=== PATIENT | male | born 1940 | race Caucasian/White ===

== ENCOUNTER 2016-02-22 18:51 | Observation (INO) | payer MEDICARE, OTHER ==
[~2016-02-22] VITALS: Ht 182.9 cm; Wt 93.2 kg
[2016-02-22 19:03] VITALS: BP 147/85; PULSE 84; RESP 22; O2SAT 97
[2016-02-22 19:36] VITALS: BP 148/61; PULSE 78; RESP 19; O2SAT 98
--- NOTE | 2016-02-22 19:50 | ED.REPORT ---
HPI-Chest Pain 40 and Over Date of Service Feb 22, 2016 ED Provider: Dr. Davian Tony D.O. A 75 year old male with a history of Meckel's diverticulitis and double hernia presents to the ED from Urgent Care with chest heaviness onset yesterday. The pain lasted approximately 90 minutes. The patient also reports fatigue, irregular pulse, and elevated blood pressure. He took takes 191mg ASA daily and took 325mg yesterday. Nursing Notes Stated Complaint: IRREGULAR HEART BEAT Chief Complaint: Dysrhythmia/Cardiac Nursing Notes Reviewed: Yes Allergies: Coded Allergies: No Known Allergies (Unverified , 02/22/16) Scheduled Aspirin Chew (Aspirin Chew) 81 Mg Chew 81 MG PO DAILY Atorvastatin (Lipitor) 20 Mg Tablet 20 MG PO DAILY Cholecalciferol (Vitamin D3) (Vitamin D3) 1,000 Unit Tab.chew 1,000 UNIT PO DAILY Cyanocobalamin (Vitamin B-12) (Vitamin B12) 5,000 Mcg Tab.rapdis Unknown Dose PO DAILY Vit A/C/E AC/Znox/Cupric Oxide (Eye Vitamin-Minerals Tablet) 7,160-113 Tablet 1 EACH PO DAILY Scheduled PRN Nitroglycerin SL (Nitrostat) 0.4 Mg Tab.subl 0.4 MG SL Q5MIN PRN PRN For Chest Pain General Time Seen by MD: 19:50 Chief Complaint Chest pressure Hx Obtained From: Patient Arrived By: Walk-in Sudden in Onset?: Yes Onset Occurred: Yesterday Symptom Duration: Since onset Location: : Chest left: Chest right Quality: Heaviness Severity: Current: Moderate Severity: Maximum: Moderate Associated with: Denies: Fever Pertinent Negative: Relieved by nothing Recent Healthcare: No recent doctor visit Similar Sx Previous: No Past Medical History Past Medical History Notes: Past Medical History Double hernia age 13 Meckel's diverticulitis age 48 - 10 inch removed Past Surgical History Esophagogastroduodenoscopy with biopsies Colonoscopy Family History Colon cancer Smoking History Unknown if Ever Smoker Social History Alcohol Use: "Social" Other Social History: Ambulatory Status Independent Review of Systems Review of Systems Note: + Elevated blood pressure Constitutional: Reports: Fatigue, Denies: Fever Respiratory: Denies: Non-productive cough Cardiovascular: Reports: Chest pain (Heaviness), Palpitations GI: Denies: Vomiting Neurologic: Denies: Bladder dysfunction, Bowel dysfunction Complete sys rev & neg: except as marked. Physical Exam Initial Vital Signs Vital Signs (First) Date Time Temp Pulse Resp B/P Pulse Ox O2 Delivery O2 Flow Rate FiO2 02/22/16 19:03 36.8 84 22 147/85 97 Room Air Initial VS: Reviewed Head / Eyes: Atraumatic, Normocephalic ENT: Conjunctiva normal, No scleral icterus Neck: Supple, Full range of motion Skin: Warm, Dry, No cyanosis Neurologic: Alert, Oriented, Nonfocal Psychiatric: Mood/affect normal, Behavior normal, Normal thought content General/Constitutional: Awake, Alert, No acute distress Respiratory / Chest: Breath sounds NL, Breath sounds = bilat, No respiratory distress Cardiovascular: Heart rate NL, Regular rhythm, Heart sounds NL Abdomen: Soft, Non-tender Interpretation & Diagnostics Lab Results Interpretation Result Diagram: 02/23/1614602/23/16 0147 Test 02/22/16 19:44 Hemoglobin A1c 5.9% (4.8-5.6) Magnesium Level 2.3mg/dL (1.6-2.6) Total Bilirubin 0.2mg/dL (0.0-1.2) Aspartate Amino Transf (AST/SGOT) 18U/L (0-50) Alanine Aminotransferase (ALT/SGPT) 13U/L (0-44) Alkaline Phosphatase 55U/L (25-160) Pro-B-Type Natriuretic Peptide 474.4pg/mL (0-486) Total Protein 7.0g/dL (6.4-8.4) Albumin 3.6g/dL (3.4-5.0) Thyroid Stimulating Hormone (TSH) 1.920uIU/mL (0.450-4.500) ECG Interpretation ECG Interpretation: Sinus rhythm rate 72 Probable left atrial enlargement Repol abnormal, probable ischemia, anterolateral leads Flipped T-wave in leads V1-V6 ST depression in lead V4 Time: 19:18 Interpreted by: ED physician Re-Eval/Medical Decision Med Decision/Clinical Course 90 minutes of potentially anginal chest pain with abnormal EKG. First troponin negative. We will admit to the hospital for stress testing and rule out HI protocol. Source of Hx: Old records Time of Eval: 20:12 Patient Status: Condition improved Re-Evaluation/Progress Note: Discussed with patient lab and ECG results, diagnosis, and plan for admit. Patient agrees with plan for care and all questions were addressed. Consultation : Referral / Consult Name: Elvira Doss MD Consulted With: Hospitalist Call Returned at: 20:30 Crop Setting Out Machine Operator: Agrees with eval, Agrees with plan, Accepts admit Counseled Regarding: Diagnosis, Lab results, Need for admission Discharge & Departure Primary Impression: Chest pain Chest pain type: precordial chest pain Qualified Code: R07.2 - Precordial pain Additional Impression: Abnormal ECG Disposition: ADMITTED TO HOSPITAL Discharge Condition All VS Reviewed: Yes Condition: Stable Referrals: Liam Leon MD (PCP) Scribe Attestation Portions of this note were transcribed by Bertha Haro. Dr. Chavo Arias, personally performed the history, physical exam, and medical decision-making; I reviewed and confirmed the accuracy of the information in the transcribed note. Signed by: Diana Vera, 02/22/2016, 20:55 copies to: Liam Leon MD, Todd P DO Feb 22, 2016 19:50 BERTHA HARO Feb 22, 2016 20:23 3.6g/dL (3.4-5.0) ECG Interpretation ECG Interpretation: Sinus rhythm rate 72 Probable left atrial enlargement Repol abnormal, probable ischemia, anterolateral leads Flipped T-wave in leads V1-V6 ST depression in lead V4 Time: 19:18 Interpreted by: ED physician Re-Eval/Medical Decision Source of Hx: Old records Time of Eval: 20:12 Patient Status: Condition improved Re-Evaluation/Progress Note: Discussed with patient lab and ECG results, diagnosis, and plan for admit. Patient agrees with plan for care and all questions were addressed. Consultation : Referral / Consult Name: Elvira Doss MD Consulted With: Hospitalist Call Returned at: 20:30 Crop Setting Out Machine Operator: Agrees with eval, Agrees with plan, Accepts admit Counseled Regarding: Diagnosis, Lab results, Need for admission Discharge & Departure Primary Impression: Chest pain Chest pain type: precordial chest pain Qualified Code: R07.2 - Precordial pain Additional Impression: Abnormal ECG Disposition: ADMITTED TO HOSPITAL Discharge Condition All VS Reviewed: Yes Condition: Stable Referrals: Liam Leon MD (PCP) Scribe Attestation Portions of this note were transcribed by Bertha Haro. Dr. Barrera Ariasia, personally performed the history, physical exam, and medical decision-making; I reviewed and confirmed the accuracy of the information in the transcribed note. Signed by: Diana Vera, 02/22/2016, 20:55 copies to: Liam Leon MD, Todd P DO Feb 22, 2016 19:50 BERTHA HARO Feb 22, 2016 20:23
[2016-02-22 19:52] LABS: BASOPHILS % (AUTO) 0.4 % (0-3); EOSINOPHILS % (AUTO) 4.3 % (0-5); MONOCYTES % (AUTO) 15.4 % (4-12); Mean Corpuscular Hemoglobin 31.2 pg (27.0-35.0); Mean Corpuscular Volume 91.5 fL (81-100); NEUTROPHILS % (AUTO) 61.8 % (40-74); Platelet Count 254 bil/L (150-400)
[2016-02-22] MEDS ORDERED: Nitroglycerin 2% 1 Gm Ointment TOPICAL ONE (20:20)
[2016-02-22 20:25] LABS: TROPONIN T < 0.010 ug/L (0.0-0.011)
[2016-02-22 20:33] LABS: Magnesium 2.3 mg/dL (1.6-2.6)
[2016-02-22] MEDS: 0.9% Sodium Chloride 1,000 ML IV SCH (21:21)
[2016-02-22] MEDS ORDERED: Senna-Docusate 8.6-50 mg Tablet PO PRN (21:25)
[2016-02-22] MEDS ORDERED: Atropine 1 mg/10 mL (Code) Syringe IVPUSH PRN (21:25)
[2016-02-22] MEDS ORDERED: Alum-Mag Hydrox-Simeth 30 mL Suspension PO PRN (21:25)
[2016-02-22] MEDS ORDERED: Ondansetron 2 mg/mL 2 mL Inj IVPUSH PRN (21:25)
[2016-02-22] MEDS ORDERED: Polyethylene Glycol (PEG) 17 Gm Powder PO PRN (21:25)
--- NOTE | 2016-02-22 22:12 | PCM.HPMED ---
Subjective Date of Service Feb 22, 2016 Primary Provider: Admitting Physician: Primary Care Physician: Liam Leon MD Attending Physician: Chief Complaint: Chest pressure, htn, and irregular pulse History of Present Illness: 75 year old male, [employer], with hx of smoking and hyperlipidemia presents to the ED due to hypertension and irregular heart beat with substernal chest pressure radiating to the left arm without diaphoresis, dizziness, lightheadedness, or nausea. Pt states that the chest pressure occurred yeesterday afternoon and lasted for 1.5 hours and remitted. During this pressure he states that his SBP>160 and HR > 120. He continued to monitor his BP every 3 hours and when it elevated again today and his pulse became irregular he decided to come to the ED. He has only had pressure like this once before when he underwent extensive, 2 day dental surgery in [place] and developed atrial fibrillation from what he was told was to much novocaine. Pt states that the episode in [place] was much worse than the episode yesterday. He denies current symptoms in ED. He denies recent illness, no sick contacts, no diarrhea/constipation/fever/chills, etc. Last cardiac perfusion scan was in 2004. From [facility], pt had diagnosis of abnormal EKG in 2010 along with A-fib In the ED EKG revealed a Wellen's pattern with inverted T waves in all precordial leads and lead 1; Discussion with patient reveals that he has had this in the past. He was given aspirin 325 and lovenox. CBC/CMP benign. Trop negative Review of Systems: A comprehensive review of systems was conducted with the patient and found to be negative except as above in the History of Present Illness. Allergies Coded Allergies: No Known Allergies (Unverified , 02/22/16) Home Medications From [facility] Aspirin 81mg daily Atorvastatin 20mg daily Eylea 2mg/0.05ml Ocuvite Tablet PMH Hyperlipidemia Hx of chest pain hx of atrial fibrillation Diverticulitis Surgical History Hernia repair Family History Father, mother, sister all have cardiac disease Father of Colon cancer Mother of stomach cancer? Social History Hx Alcohol Use: Yes (occasionally) Hx Substance Use: No Hx Tobacco Use: No Smoking Status: Unknown if Ever Smoker (41 ppd) Living Arrangement: with Family Exam Vital Signs Vital Sign - Last Date Time Temp Pulse Resp B/P Pulse Ox O2 Delivery O2 Flow Rate FiO2 1/10/17 19:36 36.6 78 19 148/61 98 02/22/16 19:03 Room Air Exam Gen: NAD, conversing well HEENT: no jvd; supple neck Cardiac: RRR no m/r/g; mild-mod decreased sound Resp: CTA bilaterally with decreased breath sounds but no m/r/g Abd: non-tender, non-distended, +bs Ext: no edema; pulses intact and regular without nouding Neuro: sensation intact throughout; strength 5/5; CN2-12 Psych: normal mood and affect Lab and Diagnostics Result Diagram: 02/22/16194302/22/161943 Assessment & Plan 75 year old male with chest pressure yesterday and reported hypertension and irregular heart beat with hx of atrial fibrillation and Wellen's pattern on EKG presented to the ED for evaluation. Chest pressure likely from recurrent atrial fibrillation; resolved on admission ; ongoing - Pressure, HTN, and reported irregular heart rate - EKG demonstrates T-wave inversions through precordials and lead 1 - Troponin negative x 2 - Lab findings benign - Lovenox and aspirin started in ED - NM study tomorrow - ECHO in AM - Trend out trop and CKMB - Pt to remain on tele Chronic Hyperlipidemia; present on admission; ongoing - Last outpatient labs in january with LDL 112 - Continue Atorvastatin 20mg daily Dispo: Pt is being admitted to observation with anticipated LOS < 2 midnights for rule out of ACS Pain Evaluation: Adequate Pain Control Resuscitation Status: CPR: Attempt Resuscitation Attending Statement Pt seen and examined by myself and agree with above plan. Deshawn Lee DO Feb 22, 2016 22:12 Elvira Doss MD Feb 23, 2016 06:20
[2016-02-22 22:17] LABS: Creatine Kinase 60 U/L (21-232)
[2016-02-22 22:20] VITALS: BP 154/59; PULSE 82; RESP 22; O2SAT 96
[2016-02-23] MEDS: Sodium Chloride LOK Flush 10 mL Syringe IVFLUSH SCH ×3 (00:30→15:51)
[2016-02-23] MEDS: Heparin 5,000 Unit/mL Inj SUBQ SCH ×3 (00:30→15:51)
[2016-02-23 02:12] LABS: BASOPHILS % (AUTO) 0.3 % (0-3); EOSINOPHILS % (AUTO) 4.9 % (0-5); MONOCYTES % (AUTO) 14.6 % (4-12); Mean Corpuscular Hemoglobin 30.7 pg (27.0-35.0); Mean Corpuscular Volume 90.9 fL (81-100); NEUTROPHILS % (AUTO) 57.9 % (40-74); Platelet Count 227 bil/L (150-400)
[2016-02-23 02:47] LABS: Creatine Kinase 52 U/L (21-232)
[2016-02-23 04:42] VITALS: BP 102/36; PULSE 72; RESP 19; O2SAT 94
--- NOTE | 2016-02-23 07:29 | NUR ---
Admit note Pt admitted to ER # 15 an inpatient status. Admission assessment and screening completed. VSS. POC reviewed and discussed with pt and he verbalizes understating. Pt is appropriate and cooperative with care. Pt denies CP or discomfort. supervisor functional testing shows SR with frequent PACs. No overt complications noted.
[2016-02-23 09:06] VITALS: BP 123/55; PULSE 70; RESP 14; O2SAT 99
--- NOTE | 2016-02-23 10:20 | DRSVH ---
[facility] [address] [place] [address] Echocardiogram Report Name: SAMIR JOHNSON DStudy Date: 02/23/2016 Height: 72 in Hospital Exam Location: [facility] Weight: 206 lb Gender: Male BSA: 2.2 m2 : 1940 Age: 75 yrs BP: 102/36 mmHg Reason For Study: CHEST PAIN Ordering Physician: Performed By: Omar Stein Interpretation Summary The left ventricle is normal in size. The ejection fraction is estimated to be 65-70%. The right ventricle is normal in size and function. There is mild to moderate mitral regurgitation. Procedure: A two-dimensional transthoracic echocardiogram with color flow and Doppler was performed. The study quality was technically good. There is no prior echocardiogram noted for this patient. The patient was in normal sinus rhythm during the exam. The patient had occasional PACs during the exam. Left Ventricle: The left ventricle is normal in size. Left ventricular wall thickness is mildly increased. Apical hypertrophy is present. A false chord is noted (normal variant). The ejection fraction is estimated to be 65-70%. There are no focal wall motion abnormalities. Spectral Doppler of the mitral valve is reversed, with an E/A wave ratio < 1.0. Right Ventricle: The right ventricle is normal in size and function. Atria: Both atria are normal in size. The interatrial septum is intact with no evidence for an atrial septal defect. Mitral Valve: The mitral valve leaflets are slightly calcified. There is mild to moderate mitral regurgitation. Aortic Valve: The aortic valve is trileaflet. The aortic valve opens well. There is no aortic valve stenosis. No aortic regurgitation is present. Tricuspid Valve: The tricuspid valve is normal in structure and function. There is trace tricuspid regurgitation. Pulmonary artery pressures cannot be estimated because of the lack of a measurable TR jet velocity. Pulmonic Valve: The pulmonic valve is not well seen, but is grossly normal. There is trace pulmonic regurgitation. Great Vessels: The aortic root is normal size. The dimensions of the ascending aorta are normal. The aortic arch is at the upper limits of normal in size. The pulmonary artery is normal size. The IVC is of normal diameter and collapses greater than 50% with a sniff. This suggests a low right atrial pressure of 3 mm Hg. Pericardium/ Pleura There is no pericardial effusion. There is no pleural effusion. MMode/2D Measurements & Calculations LVIDd: 4.6 cm LA dimension: 4.0 cm RA long axis Ao root diam: 3.1 cm LVIDs: 2.4 cm Aortic Jxn: 2.9 cm FS: 47.5 % LA A2 area: 20.8 cm RA area asc Aorta Diam EPSS: 0.70 cm LA A4 area: 24.8 cm IVSd: 1.1 cm LA length (vol) : 14.0 cm Ao Arch Diam LVPWd: 1.1 cm RA vol (Proximal trans.) LA vol: 71.9 ml : 36.2 ml LA vol index RA : 16.8 mm2 IVC diam: 1.6 cm LV rebolledo. diameter/BSALV sys. diameter/BSA RVD1 (basal) RVD2 (mid): 2.7 cm (cm/m^2): 2.2 (cm/m^2): 1.1 Doppler Measurements & Calculations Ao V2 max MV E max newton MV E/A: 0.85 PA V2 max: 77.4 cm/sec : 102.5 cm/sec : 57.0 cm/sec Med Peak E' Newton PA mean P.4 mmHg Ao max PG MV A max newton PA Accel Time: 0.12 sec : 4.2 mmHg : 67.1 cm/sec E/E' med: 10.1 Ao mean PG Pulm A Revs Dur : 3.0 mmHg MV A dur: 0.13 sec MV dec time Ao V2 mean PA V2 mean Pulm A Revs Dur - MV A : 0.25 sec : 83.7 cm/sec : 57.7 cm/sec Dur: -0.02 msec Ao V2 VTI PA pr(Accel) : 22.3 cm : 25.8 mmHg Reading Physician:JOVANI
[2016-02-23 11:28] VITALS: PULSE 81
[2016-02-23] MEDS: 0.9% Sodium Chloride 1,000 ML IV SCH (12:48)
[2016-02-23] MEDS ORDERED: CYAN50008 PO (13:08)
[2016-02-23] MEDS ORDERED: ASPI81TA3 PO (13:08)
[2016-02-23] MEDS ORDERED: CHOL10008 PO (13:08)
[2016-02-23] MEDS ORDERED: VIT-10 PO (13:08)
[2016-02-23] MEDS ORDERED: ATOR20TA PO (13:08)
[2016-02-23 13:22] VITALS: BP 136/75; PULSE 72; RESP 18; O2SAT 97
--- NOTE | 2016-02-23 13:36 | NUR ---
7 Beat run of VT At 1300hrs patient had a 7 beat run of VT, asymptomatic. Patient denies CP/SOB, N/V, dizziness/lightheaded. Dr Cook paged notifying him of VT run.
[2016-02-23 14:34] VITALS: PULSE 84; O2SAT 98
[2016-02-23 15:13] LABS: APPEARANCE,URINE CLEAR (CLEAR,HAZY); COLOR,URINE STRAW (YELLOW); OCCULT BLOOD,URINE NEGATIVE (NEGATIVE); UROBILINOGEN,URINE NORMAL (NORMAL)
--- NOTE | 2016-02-23 15:49 | NUR ---
Social Work: Initial Assessment Data: Pt is a 75 y/o male admitted for chest pain abnormal EKG. Pt's PCP is Dr Leon, pt's insurance is [employer]. Readmit score is 0. EMR reviewed. CEMENT CAR DUMPER met with pt at bedside, role explained. Pt states he lives with his spouse in a single story home where he uses no DME. Pt states he does not have a DPOA but gave CEMENT CAR DUMPER a card stating his wishes to no ever receive a blood transfusion and CEMENT CAR DUMPER made a copy for the chart. Pt states he spoke with his doctor about this. Pt states that he has no history of HH or SNF, no LTC or VA benefits, and is not a caregiver. No d/c planning needs anticipated. CEMENT CAR DUMPER will continue to follow if needs arise. Assessment: Pt who is independent at baseline. Plan: Pt will d/c home via POV when medically stable. No d/c planning needs anticipated. CEMENT CAR DUMPER will continue to follow if needs arise. PANTERA Melendez Addendum: 02/23/16 at 1551 by MAURICIO BECK Amended: Links added.
--- NOTE | 2016-02-23 16:55 | DRSVH ---
PROCEDURE: EITHER REST OR STRESS ONLY Exercise myocardial perfusion SPECT with gated imaging and ejection fraction RADIOPHARMACEUTICAL: 22.1 mCi Tc-99m tetrafosmin IV at peak exercise. INDICATIONS: chest pain TECHNIQUE: Radiopharmaceutical was injected at peak stress test. SPECT images were obtained, with p erfusion images in short axis, horizontal long axis, and vertical long axis views. Gated images were reviewed using Z[employer] software. COMPARISON: None. CARDIAC STRESS: A standard Flo treadmill exercise tolerance test was performed by the patient under the supervision of an attending staff. The patient exercised for 5 minutes and 24 seconds; functional aerobic impai rment (NILO) is -7%. Hemodynamic data: There is normal blood pressure and heart response to exercise. Patient achieved 8 9% of maximum predicted heart rate. Symptoms: Patient denied anginal chest pain during exercise. EKG: Diffuse appearance of mild ST depression was present during stress.. FINDINGS: Raw data: There is good labeling of myocardium by radiotracer. No significant motion artifacts. Left ventricular function: Gated images demonstrate normal left ventricle wall thickening. No segme ntal wall motion abnormalities. Left ventricle end diastolic volume is 62 mL. Left ventricle stress ejection fraction is 71%; normal values are above 45%. Myocardial perfusion: There is normal distribution of activity in the left and right ventricular anay cardium, without focal perfusion defects. IMPRESSION: 1. No stress perfusion defects identified concerning persisting. 2. Ejection fraction 71%. 3. NILO -7%. PQRS ATTESTATIONS: Measure 322 - Is this imaging test primarily performed on a low-risk surgery patient for preoperative evaluation within 30 days preceding their low-risk non-cardiac surgery? Low-risk surgery is defined as cardiac or myocardial infarction less than 1%, including (but not limited to) endoscopic pr ocedures, superficial procedures, cataract surgery, and excisional breast surgery: Answer: No Measure 323 - Is this imaging test performed primarily for the monitoring of an asymptomatic patient who had percutaneous coronary intervention on the visit date or within 2 years of the visit date? An swer: No Measure 324 - Is this imaging test performed primarily for the initial detection and risk assessment on an asymptomatic, low coronary heart disease patient? Low CHD risk definition = clinicians should consider the maximum number of available patient factors used to estimate risk based on [place] (A TP III criteria), typically age, gender, diabetes, smoking status, and use of blood pressure medicati on, and integrate age appropriate estimates for missing elements, such as LDL or standard blood press ure. Answer: No Dictated by: Luz De La Torre M.D. on 02/23/2016 at 16:53 Approved by: Luz De La Torre M.D. on 02/23/2016 at 16:53
--- NOTE | 2016-02-23 17:40 | PCM.DIMED ---
Discharge Instructions Date of Service Feb 23, 2016 Dates of Hospitalization Feb 23, 2016 at 00:56 Discharge Diagnosis Discharge Diagnosis Chest Pressure Diet Heart Healthy Activity Limited until seen by PCP (Increase gradually as tolerated) Call your provider Fever or Chills, Shortness of breath, Bleeding, Chest pain, Vomitting, Excessive diarrhea, Weakness (unilateral), Other Patient Instructions Follow-up Provider: Liam Leon MD Follow-up with PCP in: 1 week Augusto Cook MD Feb 23, 2016 17:40
[2016-02-23] MEDS ORDERED: NITR0.4T SL (17:42)
[2016-02-23 17:45] VITALS: BP 149/97; PULSE 78; RESP 20; O2SAT 96
--- NOTE | 2016-02-23 18:13 | NUR ---
Discharge patient discharged at 1805hrs today. discharge instructions reviewed with patient and spouse. medication, diagnosis and follow-up recommendations reviewed. patient verbalized understanding and agreed with plan of care.
--- NOTE | 2016-02-24 00:29 | PCM.DC.MED ---
Discharge Summary Date of Service Feb 23, 2016 Dates of Hospitalization Date of Hospital Admission Feb 23, 2016 at 00:56 Date of Discharge: Feb 23, 2016 Providers: Admitting Physician: Elvira Doss MD Primary Care Physician: Liam Leon MD Attending Physician: Elvira Doss MD Diagnosis at Time of Discharge Diagnosis at Time of Discharge Chest Pressure Procedures Cardiac Echo Impression Echocardiogram Report Name: SAMIR JOHNSON DStudy Date: 02/23/2016 Height: 72 in Hospital Exam Location: [facility] Weight: 206 lb Gender: Male BSA: 2.2 m2 : 1940 Age: 75 yrs BP: 102/36 mmHg Reason For Study: CHEST PAIN Ordering Physician: Performed By: Omar Stein Interpretation Summary The left ventricle is normal in size. The ejection fraction is estimated to be 65-70%. The right ventricle is normal in size and function. There is mild to moderate mitral regurgitation. Procedure: A two-dimensional transthoracic echocardiogram with color flow and Doppler was performed. The study quality was technically good. There is no prior echocardiogram noted for this patient. The patient was in normal sinus rhythm during the exam. The patient had occasional PACs during the exam. Left Ventricle: The left ventricle is normal in size. Left ventricular wall thickness is mildly increased. Apical hypertrophy is present. A false chord is noted (normal variant). The ejection fraction is estimated to be 65-70%. There are no focal wall motion abnormalities. Spectral Doppler of the mitral valve is reversed, with an E/A wave ratio < 1.0. Right Ventricle: The right ventricle is normal in size and function. Atria: Both atria are normal in size. The interatrial septum is intact with no evidence for an atrial septal defect. Mitral Valve: The mitral valve leaflets are slightly calcified. There is mild to moderate mitral regurgitation. Aortic Valve: The aortic valve is trileaflet. The aortic valve opens well. There is no aortic valve stenosis. No aortic regurgitation is present. Tricuspid Valve: The tricuspid valve is normal in structure and function. There is trace tricuspid regurgitation. Pulmonary artery pressures cannot be estimated because of the lack of a measurable TR jet velocity. Pulmonic Valve: The pulmonic valve is not well seen, but is grossly normal. There is trace pulmonic regurgitation. Great Vessels: The aortic root is normal size. The dimensions of the ascending aorta are normal. The aortic arch is at the upper limits of normal in size. The pulmonary artery is normal size. The IVC is of normal diameter and collapses greater than 50% with a sniff. This suggests a low right atrial pressure of 3 mm Hg. Pericardium/ Pleura There is no pericardial effusion. There is no pleural effusion. MMode/2D Measurements & Calculations LVIDd: 4.6 cm LA dimension: 4.0 cm RA long axis Ao root diam: 3.1 cm LVIDs: 2.4 cm Aortic Jxn: 2.9 cm FS: 47.5 % LA A2 area: 20.8 cm RA area asc Aorta Diam EPSS: 0.70 cm LA A4 area: 24.8 cm IVSd: 1.1 cm LA length (vol) : 14.0 cm Ao Arch Diam LVPWd: 1.1 cm RA vol (Proximal trans.) LA vol: 71.9 ml : 36.2 ml LA vol index RA : 16.8 mm2 IVC diam: 1.6 cm LV rebolledo. diameter/BSALV sys. diameter/BSA RVD1 (basal) RVD2 (mid): 2.7 cm (cm/m^2): 2.2 (cm/m^2): 1.1 Doppler Measurements & Calculations Ao V2 max MV E max newton MV E/A: 0.85 PA V2 max: 77.4 cm/sec : 102.5 cm/sec : 57.0 cm/sec Med Peak E' Newton PA mean P.4 mmHg Ao max PG MV A max newton PA Accel Time: 0.12 sec : 4.2 mmHg : 67.1 cm/sec E/E' med: 10.1 Ao mean PG Pulm A Revs Dur : 3.0 mmHg MV A dur: 0.13 sec MV dec time Ao V2 mean PA V2 mean Pulm A Revs Dur - MV A : 0.25 sec : 83.7 cm/sec : 57.7 cm/sec Dur: -0.02 msec Ao V2 VTI PA pr(Accel) : 22.3 cm : 25.8 mmHg Reading Physician:JOVANI Other Diagnostics PROCEDURE: EITHER REST OR STRESS ONLY Exercise myocardial perfusion SPECT with gated imaging and ejection fraction RADIOPHARMACEUTICAL: 22.1 mCi Tc-99m tetrafosmin IV at peak exercise. INDICATIONS: chest pain TECHNIQUE: Radiopharmaceutical was injected at peak stress test. SPECT images were obtained, with perfusion images in short axis, horizontal long axis, and vertical long axis views. Gated images were reviewed using AutoQUANT software. COMPARISON: None. CARDIAC STRESS: A standard Flo treadmill exercise tolerance test was performed by the patient under the supervision of an attending staff. The patient exercised for 5 minutes and 24 seconds; functional aerobic impairment (NILO) is -7%. Hemodynamic data: There is normal blood pressure and heart response to exercise. Patient achieved 89% of maximum predicted heart rate. Symptoms: Patient denied anginal chest pain during exercise. EKG: Diffuse appearance of mild ST depression was present during stress.. FINDINGS: Raw data: There is good labeling of myocardium by radiotracer. No significant motion artifacts. Left ventricular function: Gated images demonstrate normal left ventricle wall thickening. No segmental wall motion abnormalities. Left ventricle end diastolic volume is 62 mL. Left ventricle stress ejection fraction is 71%; normal values are above 45%. Myocardial perfusion: There is normal distribution of activity in the left and right ventricular myocardium, without focal perfusion defects. IMPRESSION: 1. No stress perfusion defects identified concerning persisting. 2. Ejection fraction 71%. 3. NILO -7%. PQRS ATTESTATIONS: Measure 322 - Is this imaging test primarily performed on a low-risk surgery patient for preoperative evaluation within 30 days preceding their low-risk non- cardiac surgery? Low-risk surgery is defined as cardiac or myocardial infarction less than 1%, including (but not limited to) endoscopic procedures, superficial procedures, cataract surgery, and excisional breast surgery: Answer : No Measure 323 - Is this imaging test performed primarily for the monitoring of an asymptomatic patient who had percutaneous coronary intervention on the visit date or within 2 years of the visit date? Answer: No Measure 324 - Is this imaging test performed primarily for the initial detection and risk assessment on an asymptomatic, low coronary heart disease patient? Low CHD risk definition = clinicians should consider the maximum number of available patient factors used to estimate risk based on [place] ( ATP III criteria), typically age, gender, diabetes, smoking status, and use of blood pressure medication, and integrate age appropriate estimates for missing elements, such as LDL or standard blood pressure. Answer: No Dictated by: Luz De La Torre M.D. on 02/23/2016 at 16:53 Approved by: Luz De La Torre M.D. on 02/23/2016 at 16:53 Brief History 75 year old male, Jew, with hx of smoking and hyperlipidemia presents to the ED due to hypertension and irregular heart beat with substernal chest pressure radiating to the left arm without diaphoresis, dizziness, lightheadedness, or nausea. Pt states that the chest pressure occurred yeesterday afternoon and lasted for 1.5 hours and remitted. During this pressure he states that his SBP>160 and HR > 120. He continued to monitor his BP every 3 hours and when it elevated again today and his pulse became irregular he decided to come to the ED. He has only had pressure like this once before when he underwent extensive, 2 day dental surgery in [place] and developed atrial fibrillation from what he was told was to much novocaine. Pt states that the episode in [place] was much worse than the episode yesterday. He denies current symptoms in ED. He denies recent illness, no sick contacts, no diarrhea/constipation/fever/chills, etc. Last cardiac perfusion scan was in 2004. From [facility], pt had diagnosis of abnormal EKG in 2010 along with A-fib In the ED EKG revealed a Wellen's pattern with inverted T waves in all precordial leads and lead 1; Discussion with patient reveals that he has had this in the past. He was given aspirin 325 and lovenox. CBC/CMP benign. Trop negative patient brought in to [facility] under observation to the hospital service for further evaluation and treatment. Hospital Course 75 year old male with chest pressure yesterday and reported hypertension and irregular heart beat with hx of atrial fibrillation and Wellen's pattern on EKG presented to the ED for evaluation. Chest pressure likely from recurrent atrial fibrillation and/or angina secondary to increased myocardial demand from transient hypertension; resolved on admission; ongoing - Pressure, HTN, and reported irregular heart rate - EKG demonstrates T-wave inversions through precordials and lead 1 and remains unchanged. - Serial Troponin measurements negative - Lab findings benign - Lovenox and aspirin started in ED - NM study tomorrow - ECHO in AM - Trend out trop and CKMB - Pt monitored on telemetry Chronic Hyperlipidemia; present on admission; ongoing - Last outpatient labs in january with LDL 112 - Continue Atorvastatin 20mg daily Dispo: Acute coronary syndrome has been ruled out and patient will be discharged home today to follow up with his primary care physician. Exam Vital Signs (Last) Date Time Temp Pulse Resp B/P Pulse Ox O2 Delivery O2 Flow Rate FiO2 02/23/16 17:45 36.8 78 20 149/97 96 Room Air Exam General: Patient is in no apparent distress and is ready for discharge. HEENT: Head is atraumatic normocephalic. Eyes: Pupils are equally round and reactive to light and accommodation. Extraocular muscles are intact. Sclera are white anicteric. Subconjunctival mucosa is pink. Ears and nose are unremarkable. Oropharynx: There is no mucosal lesions, there is no thrush, there is no pharyngitis. Neck: Is supple, there are no nodes, or masses, or tenderness. Chest: Is clear to auscultation and percussion. There are no rales, rhonchi, wheezes or rubs. Heart: Rate, rhythm is regular. There is no murmur, rub or gallop. Abdomen: Good bowel sounds are present. Abdomen is obese, soft, nontender, no organomegaly or masses were appreciated. Extremities: Are symmetrical and well perfused. There is no edema, there is no cellulitis, no rash. Neurologic: There are no focal neurological deficits. Cranial nerves II through XII are intact. There are no sensory or motor deficits. Psychiatric: Patients mood is calm and shows no sign of agitation. Genital: Deferred Rectal: Deferred Test 02/22/16 19:44 02/23/16 01:47 02/23/16 14:55 Hemoglobin A1c 5.9% (4.8-5.6) Magnesium Level 2.3mg/dL (1.6-2.6) Total Bilirubin 0.2mg/dL (0.0-1.2) Aspartate Amino Transf (AST/SGOT) 18U/L (0-50) Alanine Aminotransferase (ALT/SGPT) 13U/L (0-44) Alkaline Phosphatase 55U/L (25-160) Pro-B-Type Natriuretic Peptide 474.4pg/mL (0-486) Total Protein 7.0g/dL (6.4-8.4) Albumin 3.6g/dL (3.4-5.0) Thyroid Stimulating Hormone (TSH) 1.920uIU/mL (0.450-4.500) White Blood Count 6.3th/mm3 (3.8-10.1) Red Blood Count 4.30mil/mm3 (4.40-5.80) Hemoglobin 13.2g/dL (13.8-17.2) Hematocrit 39.1% (41.0-50.0) Mean Corpuscular Volume 90.9fL (81-100) Mean Corpuscular Hemoglobin 30.7pg (27.0-35.0) Mean Corpuscular Hemoglobin Concent 33.8% (32.0-37.0) Red Cell Distribution Width 13.2% (12.3-15.4) Platelet Count 227bil/L (150-400) Neutrophils (%) (Auto) 57.9% (40-74) Lymphocytes (%) (Auto) 22.1% (14-46) Monocytes (%) (Auto) 14.6% (4-12) Eosinophils (%) (Auto) 4.9% (0-5) Basophils (%) (Auto) 0.3% (0-3) Sodium Level 141mEq/L (134-144) Potassium Level 4.1mEq/L (3.5-5.2) Chloride Level 105mEq/L (97-108) Carbon Dioxide Level 25mmol/L (18-29) Blood Urea Nitrogen 21mg/dL (8-27) Creatinine 1.01mg/dL (0.76-1.27) Estimat Glomerular Filtration Rate 76mL/min (>59) Glucose Level 114mg/dL (60-99) Calcium Level 8.4mg/dL (8.5-10.1) Total Creatine Kinase 52U/L (21-232) Creatine Kinase MB 2.1ng/mL (0.0-10.4) Creatine Kinase MB % % (0.0-5.0) Troponin T 0.010ug/L (0.0-0.011) Triglycerides Level 68mg/dL (0-149) Cholesterol Level 113mg/dL (100-199) LDL Cholesterol, Calculated 65.400mg/dL (0-99) VLDL Cholesterol 13.600mg/dL HDL Cholesterol 34mg/dL (>39) Cholesterol/HDL Ratio 3.32 (0.0-4.4) Urine Color Straw (YELLOW) Urine Appearance Clear (CLEAR,HAZY) Urine pH 7.0 (5.0-8.0) Urine Specific [place] 1.015 (1.003-1.035) Urine Protein Negativemg/dL (NEG,TRACE) Urine Glucose (UA) Negativemg/dL (NEGATIVE) Urine Ketones Negativemg/dL (NEGATIVE) Urine Occult Blood Negative (NEGATIVE) Urine Nitrite Negative (NEGATIVE) Urine Bilirubin Negative (NEGATIVE) Urine Urobilinogen Normalmg/dL (NORMAL) Urine Leukocyte Esterase Negative (NEGATIVE) Urine RBC 0-2/hpf (0-2) Urine WBC 0-5/hpf (0-5) Urine Epithelial Cells Occasional/hpf (NONE-MOD) Urine Crystals None seen (NONE SEEN) Urine Bacteria Few/hpf (NONE-FEW) Urine Hyaline Casts None/lpf (NONE) Urine Granular Casts None seen (NONE SEEN) Urine Waxy Casts None seen (NONE SEEN) Urine Red Blood Cell Casts None seen (NONE SEEN) Urine White Blood Cell Casts None seen (NONE SEEN) Urine Mucus None seen (None Seen) Urine Trichomonas None seen (NONE SEEN) Urine Yeast None (NONE SEEN) Urinalysis Comment None Urine Culture Reflexed Not indicated Discharge Medications Discharge Medications Aspirin Chew (Aspirin Chew) 81 Mg Chew 81 MG PO DAILY (Reported) Atorvastatin (Lipitor) 20 Mg Tablet 20 MG PO DAILY (Reported) Cholecalciferol (Vitamin D3) (Vitamin D3) 1,000 Unit Tab.chew 1,000 UNIT PO DAILY (Reported) Cyanocobalamin (Vitamin B-12) (Vitamin B12) 5,000 Mcg Tab.rapdis Unknown Dose PO DAILY (Reported) Vit A/C/E AC/Znox/Cupric Oxide (Eye Vitamin-Minerals Tablet) 7,160-113 Tablet 1 EACH PO DAILY (Reported) As needed Nitroglycerin SL (Nitrostat) 0.4 Mg Tab.subl 0.4 MG SL Q5MIN PRN PRN For Chest Pain Prescribed by: COURTNEY COOK MD Followup Plan Disposition: Patient is being discharged home with his . Discharge Diet: Heart Healthy Discharge Activity: Limited until seen by PCP (Increase gradually as tolerated) Follow-up Provider: Liam Leon MD Follow-up with PCP in: 1 week Time spent Time spent on discharging this patient was greater than 35 minutes, over half of which was involved in counseling and coordination of care. Augusto Cook MD Feb 24, 2016 00:29
[2016-03-21] MEDS ORDERED: LISI10TA PO (10:42)
[2016-03-21] MEDS ORDERED: FLC50T PO (10:42)
[2016-03-21] MEDS ORDERED: OMEP20CA11 PO (10:42)
[2016-03-21] MEDS ORDERED: METO25TA99 PO ×2 (10:42→10:44)
== END 2016-02-23 18:08 | disposition home or self-care (01) ==
LOC: SED 18:51 → OFED 02-23 00:56 → INTOOBSV 02-23 00:56 → MOC 02-23 09:08
PROVIDERS: ADMIT Specialist; ATTEND Specialist
DX: R07.89 Other chest pain (principal); R00.8 Other abnormalities of heart beat; I10 Essential (primary) hypertension; I48.91 Unspecified atrial fibrillation; E78.5 Hyperlipidemia, unspecified; F17.210 Nicotine dependence, cigarettes, uncomplicated; Z79.82 Long term (current) use of aspirin
CPT/HCPCS: 36415; 78451; 80048; 80053; 80061; 81000; 82550; 82553; 83036; 83735; 83880; 84443; 84484; 85025; 93005; 93017; 94640; 99285; A9502; C8929; G0378; J1644; J7030

== ENCOUNTER 2016-03-19 11:14 | Inpatient (IN) | payer MEDICARE ==
[2016-03-19] VITALS (10 sets, daily range): BP systolic 102–145; BP diastolic 43–74; PULSE 64–133; RESP 10–20; O2SAT 92–100
[~2016-03-19] VITALS: Ht 182.9 cm; Wt 89.9 kg
[~2016-03-19 11:14] MED LIST: ASPI81TA3 PO; ATOR20TA PO; CHOL10008 PO; CYAN50008 PO; NITR0.4T SL; VIT-10 PO
--- NOTE | 2016-03-19 11:27 | ED.REPORT ---
HPI-Chest Pain 40 and Over Date of Service Mar 19, 2016 ED Provider: Maxwell Santizo MD The patient is a 75 year old male with history of atrial fibrillation who presents to the emergency department by EMS. While shaving this morning the patient developed chest pressure, elevated blood pressure, and shortness of breath. He took nitroglycerin x5 without relief. The patient went to the fire station and was transported here. He was in atrial fibrillation with an elevated rate up into the 180s. He was treated with Cardizem and his rate slowed to 110-130. He is not able to say if he was in a regular rhythm prior to the onset of pain. His chest pain and shortness of breath have resolved. He had a similar episode 1 week ago and was admitted to the hospital for chest pressure. He was not in atrial fibrillation at that time. He had a normal echocardiogram and stress test. He was in atrial fibrillation with RVR about 5- 6 years ago and states it was difficult to slow his rate at that time. Nursing Notes Stated Complaint: CHEST DISCOMFORT Nursing Notes Reviewed: Yes Allergies: Coded Allergies: No Known Allergies (Unverified , 02/22/16) Scheduled Aspirin Chew (Aspirin Chew) 81 Mg Chew 81 MG PO DAILY Atorvastatin (Lipitor) 20 Mg Tablet 20 MG PO DAILY Cholecalciferol (Vitamin D3) (Vitamin D3) 1,000 Unit Tab.chew 1,000 UNIT PO DAILY Cyanocobalamin (Vitamin B-12) (Vitamin B12) 5,000 Mcg Tab.rapdis Unknown Dose PO DAILY Vit A/C/E AC/Znox/Cupric Oxide (Eye Vitamin-Minerals Tablet) 7,160-113 Tablet 1 EACH PO DAILY Scheduled PRN Nitroglycerin SL (Nitrostat) 0.4 Mg Tab.subl 0.4 MG SL Q5MIN PRN PRN For Chest Pain General Time Seen by MD: 11:26 Chief Complaint Chest pain Hx Obtained From: Patient, EMS Arrived By: Ambulance Sudden in Onset?: Yes Onset Occurred: 1 - 4 hours ago Context of Onset: At rest Symptom Duration: 1 - 4 hours Quality: Painful Radiation: : Does not radiate Migration/Movement: Reports: None Severity: Current: No pain currently Severity: Maximum: Moderate Recent Healthcare: Recent doctor visit, Recent hospitalization Similar Sx Previous: Yes Past Medical History Past Medical History Double hernia age 13 Meckel's diverticulitis age 48 - 10 inch removed Atrial fibrillation with RVR Past Surgical History Esophagogastroduodenoscopy with biopsies Colonoscopy Family History Colon cancer Smoking History Unknown if Ever Smoker Social History Alcohol Use: "Social" Drug Use: Denies drug use Other Social History: Good social support, , Local resident Ambulatory Status Independent Review of Systems Respiratory: Reports: Shortness of breath Cardiovascular: Reports: Chest pain Complete sys rev & neg: except as marked. Physical Exam Initial Vital Signs Vital Signs (First) Date Time Temp Pulse Resp B/P Pulse Ox O2 Delivery O2 Flow Rate FiO2 03/19/16 11:29 36 115 19 103/58 100 Nasal Cannula 3 Initial VS: Reviewed Head / Eyes: Atraumatic, Normocephalic, PERRL ENT: Mucous membranes moist, Conjunctiva normal, No scleral icterus Neck: Supple, Non-tender, Full range of motion Lymphatic: No lymphadenopathy Extremities: Vascular intact, Neuro intact, No swelling, No tenderness Skin: Warm, Dry, No cyanosis Neurologic: Alert, Oriented, Nonfocal Psychiatric: Mood/affect normal, Behavior normal, Normal thought content General/Constitutional: Awake, Alert, No acute distress, Well appearing Respiratory / Chest: Atraumatic, Breath sounds NL, Breath sounds = bilat, No respiratory distress, No rales, No rhonchi, No wheezing, No stridor, No chest tenderness Cardiovascular: Heart sounds NL, No murmurs, No rubs, Peripheral circulation NL , Pulses = bilaterally Heart Rate / Rhythm: Positive: Irreg irregular rhythm, Tachycardia Abdomen: Atraumatic, Soft, Non-tender, McBurney's non-tender, No guarding, No rebound, BS normoactive, No distention, No hernia, No palpable mass Lower Extremity / Pelvis / MS: Neurologic intact, Vascular intact, No edema No calf swelling or tenderness Interpretation & Diagnostics Lab Results Interpretation Result Diagram: 03/19/16 1200 03/19/16 1200 Test 03/19/16 12:00 White Blood Count 6.2th/mm3 (3.8-10.1) Red Blood Count 4.95mil/mm3 (4.40-5.80) Hemoglobin 15.3g/dL (13.8-17.2) Hematocrit 44.5% (41.0-50.0) Mean Corpuscular Volume 89.9fL (81-100) Mean Corpuscular Hemoglobin 30.9pg (27.0-35.0) Mean Corpuscular Hemoglobin Concent 34.4% (32.0-37.0) Red Cell Distribution Width 13.1% (12.3-15.4) Platelet Count 244bil/L (150-400) Neutrophils (%) (Auto) 67.8% (40-74) Lymphocytes (%) (Auto) 14.4% (14-46) Monocytes (%) (Auto) 14.7% (4-12) Eosinophils (%) (Auto) 2.6% (0-5) Basophils (%) (Auto) 0.3% (0-3) Prothrombin Time 10.7sec (8.1-12.5) Prothromb Time International Ratio 1.00ratio Activated Partial Thromboplast Time 26.8sec (22.8-33.0) Sodium Level 139mEq/L (134-144) Potassium Level 4.1mEq/L (3.5-5.2) Chloride Level 104mEq/L (97-108) Carbon Dioxide Level 20mmol/L (18-29) Blood Urea Nitrogen 17mg/dL (8-27) Creatinine 1.06mg/dL (0.76-1.27) Estimat Glomerular Filtration Rate 72mL/min (>59) Glucose Level 106mg/dL (60-99) Calcium Level 8.7mg/dL (8.5-10.1) Magnesium Level 2.0mg/dL (1.6-2.6) Total Bilirubin 0.3mg/dL (0.0-1.2) Aspartate Amino Transf (AST/SGOT) 16U/L (0-50) Alanine Aminotransferase (ALT/SGPT) 11U/L (0-44) Alkaline Phosphatase 57U/L (25-160) Troponin T 0.010ug/L (0.0-0.011) Total Protein 7.1g/dL (6.4-8.4) Albumin 3.6g/dL (3.4-5.0) ECG Interpretation ECG Interpretation: Atrial fibrillation with a rate of 96 bpm Abnormal R wave progression T wave inversion in leads V2-V6 with lateral ST depressions of 1-2 mm When compared to prior dated 02/22/2016 there are no acute changes including the T wave inversions and ST depressions Time: 11:35 Interpreted by: ED physician X-Ray Chest Interpretation Chest Xray Interpretation: IMPRESSION: No acute cardiopulmonary disease. Dictated by: Thien Garrett M.D. on 03/19/2016 at 12:06 Interpretation / Wet Read by: Interpret - Radiologist Re-Eval/Medical Decision Med Decision/Clinical Course In summary, the patient is a 75-year-old male with a history of paroxysmal atrial fibrillation and hypertension, admitted last month for ACS rule out which time echocardiography and stress test were reassuring who presents to the emergency department with dull substernal chest pain, lightheadedness and racing heart. The patient received aspirin and nitroglycerin prior to arrival and was given a dose of diltiazem by EMS. Upon arrival the patient is in atrial fibrillation with RVR with heart rate anywhere between 100-140. He has ongoing symptoms of chest pressure and lightheadedness. IV access was obtained and I administered a 1 L saline bolus as well as sequential doses of diltiazem 5 mg. He remained in atrial fibrillation though his heart rate improved. The patient was unable to pinpoint time when he went in atrial fibrillation and therefore I do not consider him a candidate for electrical cardioversion. He is currently not anticoagulated. EKG was obtained and interpreted by myself as documented above. CXR: Obtained, reviewed and interpreted by myself shows no evidence of acute infiltrates, effusions or pneumothorax. Cardiac and mediastinal silhouette normal. No bony or soft tissue abnormalities. Laboratory studies were obtained as below: CBC unremarkable, CMP unremarkable, troponin negative At this time no evidence of acute coronary syndrome and previous workup including stress test and echocardiogram was reassuring. I suspect that his chest pain is likely related to demand ischemia in the setting of his atrial fibrillation with rapid ventricular response. He is hemodynamically stable. No signs/symptoms or history suggestive of pulmonary embolism. No significant electrolyte abnormalities. Patient was discussed with cardiology Dr. Sharma as well as admitting hospitalist and was accepted for further management of his arrhythmia. Transferred in stable condition. Source of Hx: Old records, EMS Summary of Info: Echocardiogram from 02/2016 Interpretation Summary The left ventricle is normal in size. The ejection fraction is estimated to be 65-70%. The right ventricle is normal in size and function. There is mild to moderate mitral regurgitation. Time of Eval: 12:10 Re-Evaluation/Progress Note: Discussed possibility for admission. Consultation #1: Referral / Consult Name: Umesh Willett Consulted With: Hospitalist Call Returned at: 12:54 Book Sewing Machine Operator: Will see patient, Agrees with eval, Agrees with plan, Accepts admit Consultation #2: Referral / Consult Name: Blanquita Sharma MD Consulted With: Cardiology Requested Call at: 12:55 Call Returned at: 13:00 Book Sewing Machine Operator: Agrees with eval, Agrees with plan Counseled Regarding: Diagnosis, Lab results, Need for admission Discharge & Departure Primary Impression: Atrial fibrillation with rapid ventricular response Additional Impressions: Chest pain Chest pain type: unspecified Qualified Code: R07.9 - Chest pain, unspecified Demand ischemia of myocardium Lightheadedness Disposition: ADMITTED TO HOSPITAL Discharge Condition All VS Reviewed: Yes Condition: Stable Referrals: Liam Leon MD (PCP) Crit Care Except Billable Proc Time Spent: 105-134 minutes Services Performed: Patient management by me, Time spent at bedside, Reviewing test results, Reviewing imaging, Discussing patient care, Documentation in record, Time with fam/surrogate Scribe Attestation Portions of this note were transcribed by Kimberly Mendez. I, Dr. Santizo personally performed the history, physical exam and medical decision-making; I reviewed and confirmed the accuracy of the information in the transcribed note. Signed by: Diana Lynch, 03/18/2015 and 1315. copies to: Liam Leon MD, Beck O MD Mar 19, 2016 11:27 Kimberly Mendez Mar 19, 2016 11:32
[2016-03-19 12:06] LABS: BASOPHILS % (AUTO) 0.3 % (0-3); EOSINOPHILS % (AUTO) 2.6 % (0-5); MONOCYTES % (AUTO) 14.7 % (4-12); Mean Corpuscular Hemoglobin 30.9 pg (27.0-35.0); Mean Corpuscular Volume 89.9 fL (81-100); NEUTROPHILS % (AUTO) 67.8 % (40-74); Platelet Count 244 bil/L (150-400)
--- NOTE | 2016-03-19 12:09 | DRSVH ---
PROCEDURE: X-RAY CHEST ONE VIEW, PORTABLE ([id number]) INDICATIONS: 75 year-old male with chest pain. TECHNIQUE: One view of the chest was acquired. COMPARISON: [facility], CT, CT CHEST WO CON, 03/13/2016, 10:57. [facility], CR, CHEST 2VW, 08/04/2010, 8:15. FINDINGS: Surgical changes and devices: None. Lungs and pleura: No pleural effusions or pneumothorax. Lungs are clear. Mediastinum: Mediastinal contours appear normal. Heart size is normal. Bones and chest wall: No suspicious bony lesions. Overlying soft tissues appear unremarkable. IMPRESSION: No acute cardiopulmonary disease. Dictated by: Thien Garrett M.D. on 03/19/2016 at 12:06 Approved by: Thien Garrett M.D. on 03/19/2016 at 12:07
[2016-03-19] MEDS ORDERED: Alum-Mag Hydrox-Simeth 30 mL Suspension PO PRN ×2 (12:15→16:25)
[2016-03-19] MEDS ORDERED: Ondansetron 2 mg/mL 2 mL Inj IVPUSH PRN ×2 (12:15→16:25)
[2016-03-19 12:32] LABS: TROPONIN T 0.01 ug/L (0.0-0.011)
[2016-03-19] MEDS: Diltiazem 5 mg/mL 5 mL Inj IVPUSH PRN ×3 (12:48→14:05)
[2016-03-19] MEDS ORDERED: LISI10TA PO (14:01)
--- NOTE | 2016-03-19 15:10 | NUR ---
Transfer to [facility] Patient report called by ED nurse. Patient arrived to room 3017 via wheelchair around 1430. Patient was able to transfer independently to bed and is steady on feet. Patient had no noticeable skin problems and was slightly SOB upon arrival. Patient vital signs were 145/71 pulse 82 respirations 18 temperature 36.6 and 99% on RA. Patient was placed on telemetry and instrument technologist called and stated patient HR jumps from 120s-140s. Patient has been oriented to room, call light system, television remote, and staff. Patient in bed.
--- NOTE | 2016-03-19 16:09 | NUR ---
Transfer to [facility] Patient report given to Norman Ohara in [facility]. Patient MD is in room with him now. Patient will be transferred by wheelchair to room 2001 when finished with .
[2016-03-19] MEDS ORDERED: Polyethylene Glycol (PEG) 17 Gm Powder PO PRN (16:25)
[2016-03-19] MEDS ORDERED: Heparin 5,000 Unit/mL Inj SUBQ SCH (16:30)
[2016-03-19] MEDS ORDERED: Diltiazem Inj 125 MG in 0.9% Sodium Chloride 100 ML, Pharmacy To Mix 1 EA IV SCH (16:40)
--- NOTE | 2016-03-19 18:21 | CONS ---
[address] [address] CONSULTATION REPORT PATIENT: SAMIR JOHNSON : 1940 MR#: [id number] ADMIT: 03/19/2016 JOB ID: [id number] DATE OF SERVICE: 03/19/2016 CHIEF COMPLAINT: AFib. HISTORY OF PRESENT ILLNESS: The patient is a delightful 75-year-old man with paroxysmal atrial fibrillation that originally came to medical attention about 2011. At the time, he was having his teeth pulled in [place]. He traveled from [place] to [place] and then suddenly developed severe palpitations associated with chest discomfort. He was treated with unknown medication and his AFib resolved. He was doing fine for many years until February 22, 2016 when he developed 15 hour long episode of AFib associated with substernal chest pressure. He was hospitalized at [facility]. He had extensive workup including echocardiogram (normal); he also had a graded exercise stress test with myocardial perfusion imaging February 23, 2016. He had good exercise capacity, functional aerobic impairment index 7% and there was no evidence of ischemia or prior infarct. His workup so far as far as the cause of AFib is totally unremarkable. His electrolytes are normal. His thyroid function is normal. His ischemic evaluation is normal. He does not drink much coffee. He only drinks two cups per day. He does not drink alcohol except on rare occasions and if he does then he only will drink one rum and Coke or one glass of wine per day. He does not use drugs. Today earlier this morning, he developed sudden onset AFib. He is quite clear on the symptom onset. In the emergency department he received multiple boluses of diltiazem IV with no improvement. Cardiology is consulted to assist with management. It looks like when he was discharged home after his hospitalization February 22, he was not really sent home on any antiarrhythmic medication for arrhythmia prevention. He was just basically sent home on aspirin and instructed to follow up with watch repairer, Dr. Campo. He has an appointment tomorrow, March 20, 2016. PAST MEDICAL HISTORY: 1. Paroxysmal AFib converted chemically in [place]. 2. COPD. 3. Family history of early onset colon cancer. He was closely monitored by Dr. Ojeda until Dr. Ojeda retired. 4. His most recent endoscopy and colonoscopy was performed April 26, 2011. At that time, he had sigmoid diverticulosis and otherwise normal colonoscopy and gastric ulcer which turned out to have Helicobacter pylori. He does not recall whether he was contacted and treated with oral antibiotics. The biopsy showed mucosal ulceration with granulation tissue and chronic active gastritis. REVIEW OF SYSTEMS: He denies any infections, any fevers or chills, any vision problems, any bright red blood per rectum or hematuria. He recalls in hindsight he did have blood per rectum in 2011 when he was taking high-dose ibuprofen for trigger finger but has not had any bright red blood per rectum since then. He denies any nosebleeds, any abdominal pain. He does have heartburn for which he takes Tums on as-needed basis. His weight has been actually increasing. He does not have any dysphagia. Otherwise 10 point review of systems is negative. HOME MEDICATIONS: 1. Aspirin 81 mg daily. 2. Lipitor 20 mg daily. 3. Different vitamins. FAMILY HISTORY: He has a strong family history of coronary artery bypass graft surgery in his mother. His father and sister from colon cancer and he is closely monitored for surveillance. SOCIAL HISTORY: He very rarely drinks alcohol. He does not smoke. PHYSICAL EXAMINATION: Temperature 36.7, blood pressure 103/58 up to 145/71, pulse 130 beats per minute. AFib with RVR. Satting 97% to 100% on 3 L nasal cannula. Very pleasant man, no apparent distress. Eyes: No scleral icterus. Neck is supple. No carotid bruits. Heart: Irregularly irregular. No murmurs. Tachycardic. Lungs are clear anteriorly. Abdomen is soft, positive bowel sounds. No hepatosplenomegaly. Extremities: Warm, well perfused. No clubbing, cyanosis, or edema. Skin: No rashes or lesions. DIAGNOSTIC STUDIES: EKG obtained by the shows AFib with RVR and ST depressions in inferolateral leads. Labs were reviewed and they are very reassuring. TSH is normal. Imaging was reassuring. There is no cardiomegaly. CT chest without contrast March 13, 2016 and he was found to have stable 3-5 mm ground-glass nodules in the right lung base. No further followup was recommended. There is minimal atherosclerotic plaquing at the origin of right coronary artery and minimal atherosclerotic plaquing of the descending thoracic aorta. His lungs looked good on personal review. ASSESSMENT AND PLAN: In summary, this is a delightful man with new-onset atrial fibrillation. PLAN: Stroke prevention: His CHADS2 Vasc score is 2 with points for age over 75, so technically he is high risk for stroke. He meets criteria for oral anticoagulation. I took the liberty of ordering Lovenox especially since I plan to chemically cardiovert him. I think he would benefit from oral anticoagulation as an outpatient, and we will discuss his options in more detail after I get a better idea for what his insurance situation is. Plan for cardioversion: I recommend flecainide 300 mg once that should result in cardioversion in over 50% of patients with in the next 6 hours. I think it is reasonable to try and control the environmental. We will also in the interim give diltiazem drip for rate control. Thank you very much for the opportunity to participate in his care. He has a history of H. pylori and I do not know what kind of treatment and what kind of followup he had. He was instructed to have repeat endoscopy in 2017, so I think it is reasonable for him to have repeat colonoscopy and endoscopy at the same time, and I will facilitate referral to GI to this end. Thank you very much for the opportunity to evaluate him.
--- NOTE | 2016-03-19 19:03 | PCM.HPMED ---
Subjective Date of Service Mar 19, 2016 Primary Provider: Admitting Physician: Umesh Willett Primary Care Physician: Liam Leon MD Attending Physician: Umesh Willett Chief Complaint: chest pressure and palpitation History of Present Illness: 75 year old male, Mormon, with hx of smoking and hyperlipidemia who was just hospitalized on 02/22/16 for complaint of chest discomfort and had negative cardiac workup (including stress test and echo) represents presents today with complaint of acute onset of left sided chest pressure and associated palpitation. He was on his way to [place] this morning when he felt these symptoms. He check his blood pressure and noticed he was tachycardic and hypertensive. He took 5 SL NTG tabs without relief. His took him to the local fire station where he says he was found to be in A-fib and received a dose of Diltiazem. By the time he arrived to ED his symptoms were subsiding but not completely resolved. He received additional IV Dilt in ED for A-fib with RVR which initially improved his heart rate and patient reports that his chest discomfort completely resolved by the time he was transferred to the floor. He otherwise denies any lightheadedness, nausea, vomiting, or significant shortness of breath associated with his presenting symptoms today. He does note that about 7 years ago he had somewhat similar symptoms and was found to have A-fib with RVR that resolved after 24 hour hospitalization and treatment with a medication that he does not recall its name. As mentioned his ischemic workup was fairly unremarkable in most recent hospitalization and he was scheduled to see Dr. Campo from cardiology tomorrow as an outpatient. Allergies Coded Allergies: No Known Allergies (Unverified , 02/22/16) Home Medications Aspirin 81mg daily Atorvastatin 20mg daily Lisinopril 10 mg po daily Eylea 2mg/0.05ml Ocuvite Tablet Exam Vital Signs & I/O Vital Sign- Last 8 Hours Date Time Temp Pulse Resp B/P Pulse Ox O2 Delivery O2 Flow Rate FiO2 03/19/16 16:39 36.7 126 20 135/74 97 Room Air 03/19/16 15:34 132 03/19/16 14:29 36.6 82 18 145/71 99 Room Air 03/19/16 14:09 132 10 122/43 97 Room Air 03/19/16 14:06 126 11 112/49 98 Room Air 03/19/16 12:46 133 15 130/53 100 Room Air 03/19/16 11:29 36 115 19 103/58 100 Nasal Cannula 3 Lab & Micro Results Laboratory Tests Test 03/19/16 12:00 03/19/16 17:15 03/19/16 17:17 White Blood Count 6.2th/mm3 (3.8-10.1) Red Blood Count 4.95mil/mm3 (4.40-5.80) Hemoglobin 15.3g/dL (13.8-17.2) Hematocrit 44.5% (41.0-50.0) Mean Corpuscular Volume 89.9fL (81-100) Mean Corpuscular Hemoglobin 30.9pg (27.0-35.0) Mean Corpuscular Hemoglobin Concent 34.4% (32.0-37.0) Red Cell Distribution Width 13.1% (12.3-15.4) Platelet Count 244bil/L (150-400) Neutrophils (%) (Auto) 67.8% (40-74) Lymphocytes (%) (Auto) 14.4% (14-46) Monocytes (%) (Auto) 14.7% (4-12) Eosinophils (%) (Auto) 2.6% (0-5) Basophils (%) (Auto) 0.3% (0-3) Prothrombin Time 10.7sec (8.1-12.5) Prothromb Time International Ratio 1.00ratio Activated Partial Thromboplast Time 26.8sec (22.8-33.0) Sodium Level 139mEq/L (134-144) Potassium Level 4.1mEq/L (3.5-5.2) Chloride Level 104mEq/L (97-108) Carbon Dioxide Level 20mmol/L (18-29) Blood Urea Nitrogen 17mg/dL (8-27) Creatinine 1.06mg/dL (0.76-1.27) Estimat Glomerular Filtration Rate 72mL/min (>59) Glucose Level 106mg/dL (60-99) Calcium Level 8.7mg/dL (8.5-10.1) Magnesium Level 2.0mg/dL (1.6-2.6) Total Bilirubin 0.3mg/dL (0.0-1.2) Aspartate Amino Transf (AST/SGOT) 16U/L (0-50) Alanine Aminotransferase (ALT/SGPT) 11U/L (0-44) Alkaline Phosphatase 57U/L (25-160) Troponin T 0.010ug/L (0.0-0.011) 0.048ug/L (0.0-0.011) Total Protein 7.1g/dL (6.4-8.4) Albumin 3.6g/dL (3.4-5.0) Hold Urine Received (Received) Result Diagram: 03/19/16 1200 03/19/16 1200 Review of Systems: Constitutional: Negative, except as otherwise mentioned in the history above. Ophthalmologic: Negative, except as otherwise mentioned in the history above. Cardiovascular: Negative, except as otherwise mentioned in the history above. Respiratory: Negative, except as otherwise mentioned in the history above. Gastrointestinal: Negative, except as otherwise mentioned in the history above. Genitourinary: Negative, except as otherwise mentioned in the history above. Musculoskeletal: Negative, except as otherwise mentioned in the history above. Neurological: Negative, except as otherwise mentioned in the history above. Psychiatric: Negative, except as otherwise mentioned in the history above. Hematologic/Lymphatic: Negative, except as otherwise mentioned in the history above. Allergic/Immunologic: Negative, except as otherwise mentioned in the history above. PMH Hyperlipidemia Hx of chest pain hx of atrial fibrillation Diverticulitis Surgical History Hernia repair Family History Father, mother, sister all have cardiac disease Father of Colon cancer Mother of stomach cancer? Social History Hx Alcohol Use: Yes Alcoholic Drinks Per Day: 1 glass beer 2/3 times a week Hx Substance Use: No Hx Tobacco Use: No Smoking Status: Former Smoker (quit about 30-40 years ago) Exam Vital Signs Vital Sign - Last Date Time Temp Pulse Resp B/P Pulse Ox O2 Delivery O2 Flow Rate FiO2 03/19/16 16:39 36.7 126 20 135/74 97 Room Air 03/19/16 11:29 3 Exam Gen: NAD, conversing well HEENT: no jvd; supple neck Cardiac: RRR no m/r/g; mild-mod decreased sound Resp: CTA bilaterally with decreased breath sounds but no m/r/g Abd: non-tender, non-distended, +bs Ext: no edema; pulses intact and regular without nouding Neuro: sensation intact throughout; strength 5/5; CN2-12 Psych: normal mood and affect Lab and Diagnostics Result Diagram: 03/19/16 1200 03/19/16 1200 Assessment & Plan 75 year old male with history of hypertension and distant A-fib presents with recurrent episode of chest pressure and found to have A-fib with RVR # Chest pressure likely from recurrent atrial fibrillation and RVR. present on admission. Ongoing at time of this dictation - rule out ACS by cycling Troponin again - cardiology has already been consulted and will f/u w/ recs regarding choice medication for rate control and antiarrhythmia - will f/u w/ cardiology recs regarding further cardiac workup as inpatient vs outpatient - c/w ASA daily # History hypertension. - will hold off on home dose Lisinopril for now in case cardiology decides to start him on a drip - f/u # Chronic Hyperlipidemia; present on admission; ongoing - Continue Atorvastatin 20mg daily Expected length of hospital stay is greater than 2 midnights and likely 2 days GI Prophylaxis: Not indicated VTE Prophylaxis: Sub-Q Heparin (Unfractionated) Resuscitation Status: CPR: Attempt Resuscitation (discussed and verified with the patient) Time spent 60 min Umesh Willett Mar 19, 2016 19:02
--- NOTE | 2016-03-19 19:14 | NUR ---
Transfer Pt. transfer from [facility] to [facility] room 2001 and report given by Ana Cristina Lombardo RN. Pt. is AFIB with HR highest 150 and is asymptomatic, denies CP, SOB, nausea and vomiting. Pt. is on diltiazem IV running at 10ml/hr. PT. is A&Ox3, [place].
--- NOTE | 2016-03-19 19:48 | NUR ---
Conversion to Sinus Call from staff nuclear medicine technologist at 1940. Patient has converted from a-fib RVR to sinus rhythm with a rate of 66. Continue to monitor. Addendum: 03/19/16 at 1953 by BRENDA SOSA RN MD notified of conversion to sinus rhythm.
--- NOTE | 2016-03-20 01:57 | NUR ---
Oxygen Patient's SpO2 noted to be dropping intermittently into the mid 80s while he was asleep. Patient states that he has been planning to get a sleep study because his doctor thinks he may have sleep apnea. Nasal cannula applied with 2L O2 and patient's SpO2 corrected to 96%. Continue to monitor.
[2016-03-20 03:38] VITALS: BP 107/53; PULSE 64; RESP 18; O2SAT 95
[2016-03-20] MEDS ORDERED: 0.9% Sodium Chloride 250 ML ONE (04:23)
[2016-03-20 07:50] VITALS: BP 107/57; PULSE 61; RESP 16; O2SAT 95
[2016-03-20 07:55] VITALS: PULSE 61
[2016-03-20] MEDS ORDERED: Diltiazem CD 120 mg ER24 Capsule PO SCH (08:30)
[2016-03-20 11:47] VITALS: BP 146/68; PULSE 70; RESP 18; O2SAT 97
[2016-03-20 11:58] VITALS: PULSE 72
[2016-03-20] MEDS ORDERED: Pantoprazole 20 mg ER24 Tablet PO ONE (12:20)
--- NOTE | 2016-03-20 14:45 | PCM.DIMED ---
LUCIA LEI DO 03/20/16 1437: Discharge Instructions Date of Service Mar 20, 2016 Dates of Hospitalization Mar 19, 2016 at 13:16 Discharge Diagnosis Discharge Diagnosis 1. Acute on chronic Atrial fibrillation with RVR. Present on admission. Ongoing. 2. Chronic Hypertension, present on admission. Stable. 3. Chronic Hyperlipidemia; present on admission. Ongoing. Medication Instructions Continue Home Medications: - Lisinopril. - Aspirin. - Atorvastatin. Start new medications: - Omeprazole 20 mg Daily. - Eliquis 5 mg Daily. - Metoprolol Succinate 25 mg Daily. - Flecainide 50 mg Twice a day (Once in the morning and once in the evening.). Diet Heart Healthy Activity No restrictions Call your provider Shortness of breath, Chest pain, Excessive diarrhea Patient Instructions Follow-up plan Do not hesitate to call emergency services or your primary care physician if you experience any of the following. -High unrelenting fevers. -Uncontrolled vomiting. -Severe hypertension. -Syncope or loss of consciousness. -Chest pain or severe shortness of breath. Follow up with your primary care physician in 1-2 weeks time following your emergency department visit for medication checks and general well-being. Follow up with your Fraud Representative in 1 months time for medication check and general cardiac health. Follow-up Provider: Liam eLon MD Follow-up with PCP in: 2 weeks Provider: Miller Campo MD Follow-up in: 4 weeks Tom Waldron MD 03/20/16 2011: Discharge Instructions Attending's Statement The patient was seen and examined together with Dr. Lei on 03/20/2016 and I agree with the history, exam and plan as outlined in the note above. . LUCIA LEI DO Mar 20, 2016 14:37 Tom Waldron MD Mar 20, 2016 20:11
[2016-03-20] MEDS ORDERED: OMEP20CA11 PO (14:47)
--- NOTE | 2016-03-20 15:30 | NUR ---
Discharge note Patient a/o x 4, denies chest pain, nausea or sob. Patient oob amb indep in halls steady gait. Tele SR 60-70's, VSS. Patient given discharge instructions, info on diagnosis, med rec and prescriptions. All questions answered. IV SL and tele removed intact. Patient amb to car with all belongings and discharged home with friend.
--- NOTE | 2016-03-21 00:16 | PROG NOTE ---
[address] [address] PROGRESS NOTE PATIENT: SAMIR JOHNSON : 1940 MR#: [id number] ADMIT: 03/19/2016 JOB ID: [id number] DATE: 03/20/2016 CHIEF COMPLAINT: Paroxysmal atrial fibrillation. SUBJECTIVE: Yesterday, the patient converted to normal sinus rhythm. He is feeling better. He says he did not feel any dizziness during conversion. Review of telemetry demonstrates that he had a 3.7 second conversion pause. OBJECTIVE: Vital signs: Temperature 37 degrees, blood pressure 107/53, up to 146/68, pulse 61, up to 72 beats per minute. He is satting at 95-97% on 2 L nasal cannula. Well-nourished man, no apparent distress. Eyes: No scleral icterus. Heart: Normal S1, S2. No murmurs. Lungs: Clear to auscultation anteriorly. Abdomen: Soft, positive bowel sounds. No hepatosplenomegaly. Extremities: Warm, well perfused. No clubbing, cyanosis, or edema. Skin: No rashes or lesions. LABORATORIES: Were reviewed from March 19. CBC is normal. Creatinine is normal. Troponin-T peaked at 0.09, but given that he had normal stress test during his previous hospitalization in February 2016, I think we are not going to recommend invasive workup at this time. Therefore, the patient is discharged home in stable condition. I would recommend discharge on flecainide 50 mg twice a day, as well as metoprolol succinate 25 mg daily, and Eliquis 5 mg twice a day. Thank you very much for the opportunity to participate in his care.
[2016-03-21] MEDS ORDERED: MeTOProlol XL 25 mg ER24 Tablet PO SCH (08:30)
[2016-03-21] MEDS ORDERED: LISI10TA PO (10:42)
[2016-03-21] MEDS ORDERED: FLC50T PO (10:42)
[2016-03-21] MEDS ORDERED: METO25TA99 PO ×2 (10:42→10:44)
[2016-03-21] MEDS ORDERED: OMEP20CA11 PO (10:42)
--- NOTE | 2016-03-21 16:29 | NUR ---
REJI spoke with nurse Hubbard and she was aware that patient's new prescriptions were being faxed to patient's PCP Dr. Sarwat Leon on 03/20/16 at [phone] in order for them to be filled by the PA. A ten day supply was faxed to patient's pharmacy at [facility] and patient stated that he will see his PCP for further instructions regarding medication. Microwave Remote Sensing Scientist attempted to call the nurse Haydee [phone] Ext [phone] at patient's doctor but there was no answer. REJI left a message requesting a call back. Ada Manjarrez, KIARA, ACM
--- NOTE | 2016-03-21 17:53 | PCM.DC.MED ---
Discharge Summary Date of Service Mar 21, 2016 Dates of Hospitalization Date of Hospital Admission Mar 19, 2016 at 13:16 Date of Discharge: Mar 20, 2016 Providers: Admitting Physician: Umesh Willett Primary Care Physician: Liam Leon MD Attending Physician: Umesh Willett Diagnosis at Time of Discharge Diagnosis at Time of Discharge 1. Acute on chronic Atrial fibrillation with RVR. Present on admission. Ongoing. 2. Chronic Hypertension, present on admission. Stable. 3. Chronic Hyperlipidemia; present on admission. Ongoing. Procedures XRay, CTs & MRIs X-RAY CHEST ONE VIEW, PORTABLE IMPRESSION: No acute cardiopulmonary disease. Dictated by: Thien Garrett M.D. on 03/19/2016 at 12:06 Brief History 75 year old male, Y[employer], with hx of smoking and hyperlipidemia who was just hospitalized on 02/22/16 for complaint of chest discomfort and had negative cardiac workup (including stress test and echo) represents presents today with complaint of acute onset of left sided chest pressure and associated palpitation. He was on his way to [place] this morning when he felt these symptoms. He check his blood pressure and noticed he was tachycardic and hypertensive. He took 5 SL NTG tabs without relief. His took him to the local fire station where he says he was found to be in A-fib and received a dose of Diltiazem. By the time he arrived to ED his symptoms were subsiding but not completely resolved. He received additional IV Dilt in ED for A-fib with RVR which initially improved his heart rate and patient reports that his chest discomfort completely resolved by the time he was transferred to the floor. Yesterday, the patient converted to normal sinus rhythm. He is feeling better. He says he did not feel any dizziness during conversion. Review of telemetry demonstrates that he had a 3.7 second conversion pause. Labs Were reviewed from March 19. CBC is normal. Creatinine is normal. Troponin-T peaked at 0.09, but given that he had normal stress test during his previous hospitalization in February 2016, I think we are not going to recommend invasive workup at this time. Therefore, the patient is discharged home in stable condition. I would recommend discharge on flecainide 50 mg twice a day, as well as metoprolol succinate 25 mg daily, and Eliquis 5 mg twice a day. Hospital Course 75 year old male with history of hypertension and distant A-fib presents with recurrent episode of chest pressure and found to have A-fib with RVR # Chest pressure likely from recurrent atrial fibrillation and RVR. present on admission. Ongoing at time of this dictation - rule out ACS by cycling Troponin again - cardiology has already been consulted and will f/u w/ recs regarding choice medication for rate control and antiarrhythmia - will f/u w/ cardiology recs regarding further cardiac workup as inpatient vs outpatient - c/w ASA daily # History hypertension. - will hold off on home dose Lisinopril for now in case cardiology decides to start him on a drip - f/u # Chronic Hyperlipidemia; present on admission; ongoing - Continue Atorvastatin 20mg daily Expected length of hospital stay is greater than 2 midnights and likely 2 days Exam Vital Signs (Last) Date Time Temp Pulse Resp B/P Pulse Ox O2 Delivery O2 Flow Rate FiO2 03/20/16 11:58 72 03/20/16 11:47 37.0 18 146/68 97 Room Air 03/20/16 07:50 2.00 Exam Vital signs: Temperature 37 degrees, blood pressure 107/53, up to 146/68, pulse 61, up to 72 beats per minute. He is satting at 95-97% on 2 L nasal cannula. Well-nourished man, no apparent distress. Eyes: No scleral icterus. Heart: Normal S1, S2. No murmurs. Lungs: Clear to auscultation anteriorly. Abdomen: Soft, positive bowel sounds. No hepatosplenomegaly. Extremities: Warm, well perfused. No clubbing, cyanosis, or edema. Skin: No rashes or lesions. Test 03/19/16 12:00 03/19/16 17:17 03/20/16 08:48 White Blood Count 6.2th/mm3 (3.8-10.1) Red Blood Count 4.95mil/mm3 (4.40-5.80) Hemoglobin 15.3g/dL (13.8-17.2) Hematocrit 44.5% (41.0-50.0) Mean Corpuscular Volume 89.9fL (81-100) Mean Corpuscular Hemoglobin 30.9pg (27.0-35.0) Mean Corpuscular Hemoglobin Concent 34.4% (32.0-37.0) Red Cell Distribution Width 13.1% (12.3-15.4) Platelet Count 244bil/L (150-400) Neutrophils (%) (Auto) 67.8% (40-74) Lymphocytes (%) (Auto) 14.4% (14-46) Monocytes (%) (Auto) 14.7% (4-12) Eosinophils (%) (Auto) 2.6% (0-5) Basophils (%) (Auto) 0.3% (0-3) Prothrombin Time 10.7sec (8.1-12.5) Prothromb Time International Ratio 1.00ratio Activated Partial Thromboplast Time 26.8sec (22.8-33.0) Sodium Level 139mEq/L (134-144) Potassium Level 4.1mEq/L (3.5-5.2) Chloride Level 104mEq/L (97-108) Carbon Dioxide Level 20mmol/L (18-29) Blood Urea Nitrogen 17mg/dL (8-27) Creatinine 1.06mg/dL (0.76-1.27) Estimat Glomerular Filtration Rate 72mL/min (>59) Glucose Level 106mg/dL (60-99) Calcium Level 8.7mg/dL (8.5-10.1) Magnesium Level 2.0mg/dL (1.6-2.6) Total Bilirubin 0.3mg/dL (0.0-1.2) Aspartate Amino Transf (AST/SGOT) 16U/L (0-50) Alanine Aminotransferase (ALT/SGPT) 11U/L (0-44) Alkaline Phosphatase 57U/L (25-160) Total Protein 7.1g/dL (6.4-8.4) Albumin 3.6g/dL (3.4-5.0) Hold Paulson Top Tube Received (Received) Hold Urine Received (Received) Troponin T 0.047ug/L (0.0-0.011) Discharge Medications Discharge Medications Aspirin Chew (Aspirin Chew) 81 Mg Chew 81 MG PO DAILY (Reported) Atorvastatin (Lipitor) 20 Mg Tablet 20 MG PO DAILY (Reported) Cholecalciferol (Vitamin D3) (Vitamin D3) 1,000 Unit Tab.chew 4,000 UNIT PO DAILY (Reported) Cyanocobalamin (Vitamin B-12) (Vitamin B12) 5,000 Mcg Tab.rapdis Unknown Dose PO DAILY (Reported) Flecainide Acetate (Flecainide Acetate) 50 Mg Tablet 50 MG PO BID Prescribed by: LUCIA LEI DO Lisinopril (Lisinopril) 10 Mg Tablet 10 MG PO DAILY (Reported) Lisinopril (Lisinopril) 10 Mg Tablet 10 MG PO DAILY Prescribed by: LUCIA LEI DO Metoprolol Succinate ER (Metoprolol Succinate ER) 25 Mg Tab.er.24h 25 MG PO DAILY Prescribed by: LUCIA LEI DO Metoprolol Succinate ER (Metoprolol Succinate ER) 25 Mg Tab.er.24h 25 MG PO DAILY Prescribed by: LUCIA LEI DO Omeprazole (Omeprazole) 20 Mg Capsule.dr 20 MG PO DAILY Prescribed by: LUCIA LEI DO Omeprazole (Omeprazole) 20 Mg Capsule.dr 20 MG PO DAILY Prescribed by: LUCIA LEI DO Vit A/C/E AC/Znox/Cupric Oxide (Eye Vitamin-Minerals Tablet) 7,160-113 Tablet 1 EACH PO DAILY (Reported) As needed Nitroglycerin SL (Nitrostat) 0.4 Mg Tab.subl 0.4 MG SL Q5MIN PRN PRN For Chest Pain Prescribed by: COURTNEY FINLEY MD Additional med instructions Continue Home Medications: - Lisinopril. - Aspirin. - Atorvastatin. Start new medications: - Omeprazole 20 mg Daily. - Eliquis 5 mg Daily. - Metoprolol Succinate 25 mg Daily. - Flecainide 50 mg Twice a day (Once in the morning and once in the evening.). Followup Plan Follow-up plan Do not hesitate to call emergency services or your primary care physician if you experience any of the following. -High unrelenting fevers. -Uncontrolled vomiting. -Severe hypertension. -Syncope or loss of consciousness. -Chest pain or severe shortness of breath. Follow up with your primary care physician in 1-2 weeks time following your emergency department visit for medication checks and general well-being. Follow up with your Technical Services Assistant in 1 months time for medication check and general cardiac health. Discharge Diet: Heart Healthy Discharge Activity: No restrictions Follow-up Provider: Liam Leon MD Follow-up with PCP in: 2 weeks Provider: Miller Campo MD Follow-up in: 4 weeks Time spent Greater than 30 minutes was spent in preparation of discharge and greater than 50% of that time was dedicated to patient counseling and coordination of care. . Attending Statement The patient was seen and examined together with Dr. Lei on 03/20/2016 and I agree with the history, exam and plan as outlined in the note above. . copies to: Liam Leon MD, COREY P DO Mar 21, 2016 17:53 Tom Waldron MD Mar 22, 2016 08:45
== END 2016-03-20 15:51 | disposition home or self-care (01) | DRG 309 ==
LOC: SED 11:14 → EDBD 11:14 → MPC 13:16 → PCC 16:05
PROVIDERS: ADMIT Internal Medicine; ATTEND Internal Medicine
PROC: 3E040RZ Introduction of Antiarrhythmic into Central Vein, Open Approach (ICD-10-PCS; principal; 2016-03-19)
DX: I48.0 Paroxysmal atrial fibrillation (principal); I24.8 Other forms of acute ischemic heart disease; E78.5 Hyperlipidemia, unspecified; Z87.891 Personal history of nicotine dependence; Z79.82 Long term (current) use of aspirin; Z79.01 Long term (current) use of anticoagulants; I10 Essential (primary) hypertension